=== PATIENT | female | born 2000 | race Caucasian/White ===

== ENCOUNTER 2021-08-18 13:28 | Emergency (ER) | payer OTHER ==
[~2021-08-18] VITALS: Ht 160 cm; Wt 108.9 kg
[~2021-08-18 13:28] MED LIST: BRONCOTRON LIQ118 ML; PROVENTIL0.5 ML/2.5; PULMICORT1 MG/2 ML
[2021-08-18] MEDS ORDERED: ZITHROMAX500 MG PO (18:04)
[2021-08-18] MEDS ORDERED: PEPCID AC20 MG PO (18:04)
== END 2021-08-18 18:34 | disposition home or self-care (01) ==
LOC: ER 13:28
DX: B34.9 Viral infection, unspecified (principal); K52.9 Noninfective gastroenteritis and colitis, unspecified; Z20.822 Contact with and (suspected) exposure to COVID-19

== ENCOUNTER 2022-01-12 08:00 | Outpatient (CLI) | payer OTHER ==
[~2022-01-12 08:00] MED LIST changes: +PEPCID AC20 MG PO; +ZITHROMAX500 MG PO
== END 2022-01-12 08:05 | disposition home or self-care (01) ==
LOC: PPH VACUNA 08:00
PROVIDERS: ATTEND Emergency Medicine Pediatric Emergency Medicine
DX: Z23 Encounter for immunization (principal)

== ENCOUNTER 2022-05-12 07:30 | Outpatient (CLI) | payer OTHER | END 2022-05-12 07:36 | disposition home or self-care (01) | LOC: LAB 07:30 | DX: O00.01 Abdominal pregnancy with intrauterine pregnancy (principal) ==

== ENCOUNTER 2022-12-29 | Outpatient (CLI) | payer OTHER | END 2022-12-29 00:15 | disposition home or self-care (01) | LOC: PPH VACUNA | PROVIDERS: ATTEND Emergency Medicine Pediatric Emergency Medicine | DX: Z23 Encounter for immunization (principal) ==

== ENCOUNTER 2023-06-19 10:29 | Emergency (ER) | payer OTHER ==
[~2023-06-19] VITALS: Ht 160 cm; Wt 120.2 kg
== END 2023-06-19 12:56 | disposition home or self-care (01) ==
LOC: ER 10:29
DX: R53.81 Other malaise (principal); J06.9 Acute upper respiratory infection, unspecified; Z20.822 Contact with and (suspected) exposure to COVID-19

== ENCOUNTER 2023-07-04 14:00 | Outpatient (CLI) | payer OTHER | END 2023-07-04 14:10 | disposition home or self-care (01) | LOC: PPH VACUNA 14:00 | PROVIDERS: ATTEND Emergency Medicine Pediatric Emergency Medicine | DX: Z23 Encounter for immunization (principal) ==

== ENCOUNTER 2023-10-17 07:38 | Outpatient (CLI) | payer OTHER ==
[~2023-10-17 07:38] MED LIST changes: +DICLOFENAC SODI50 MG PO; +NORFLEX100MG PO
== END 2023-10-17 07:48 | disposition home or self-care (01) ==
LOC: PPH VACUNA 07:38
PROVIDERS: ATTEND Emergency Medicine Pediatric Emergency Medicine
DX: Z23 Encounter for immunization (principal)